=== PATIENT | male | born 1960 | race Caucasian/White ===

== ENCOUNTER 2016-11-06 11:58 | Inpatient (IN) | payer OTHER ==
--- NOTE | ~2016-11-06 | CO ---
Unit #: [id number] #: [id number] Patient: EDMUNDO GALEANO [id number] [facility]. [place], [place] [address] [id number] I MR#: [id number] NAME: EDMUNDO GALEANO ROOM: 553 Age: 56 Sex: M Admission Date: 11/06/2016 : 1960 Attending Physician: Brianna Oswald M.D. Primary Care Physician: Chiki Arvizu M.D. CONSULTATION REPORT REASON FOR CONSULTATION Arrhythmia, rule out torsades. HISTORY OF PRESENT ILLNESS This is a pleasant 56-year-old male with a past medical history of hypertension, hyperlipidemia, chronic pain syndrome, secondary to back issues, continued tobacco abuse, history of heavy drinking in the past and states he no longer drinks heavy, and questionable COPD. The patient presents to the emergency room with complaints of a 3- to -4 day history of increasing weakness, dizziness, and chills. He also reports some associated shortness of breath; however, but denies any fever, syncope, presyncope, or chest pain. The patient also denies any recent sick contacts. On arrival to the emergency room, the patient's lactic acid was noted to be 8.7. WBC count of 13.1. Chest x-ray showed normal heart size, and no pneumothorax or infiltrate. Rapid flu screen was negative. He was noted to be hypokalemic with a potassium of 2.4 and also noted to have a decreased magnesium level, presenting magnesium was 1.2. In the emergency room, the patient has received 80 mEq of potassium chloride, 2 L IV fluids, and started on IV antibiotics. He is currently also receiving potassium runs and magnesium per protocol. We were asked to see the patient secondary to suspected torsades de pointes, which occurred at approximately 3:36 a.m. on 11/07/2016. The patient according to the nurse just back from the restroom at this time. Dr. Navarro has reviewed the strip and believes this is artifact. Nursing staff reports the patient was asymptomatic during this episode. At present, the patient is resting in bed in the emergency room in T19. He reports no symptoms of chest pain, shortness of breath, or palpitations. He is comfortable. He is asking to eat. He has been admitted secondary to a diagnosis of sepsis syndrome, questionable etiology, possible pneumonia and again we were asked to see secondary to his arrhythmia. The patient's EKG shows sinus tachycardia with PACs, rate of 102 beats per minute. Nonspecific ST-T wave abnormalities noted. QTc interval of 602 msec. No acute ischemic changes noted. Initial point of care troponins have been negative. PAST MEDICAL HISTORY Unit #: [id number] #: [id number] Patient: EDMUNDO GALEANO 1. Hypertension, hyperlipidemia, chronic pain syndrome secondary to back issues. 2. Tobacco abuse. 3. Reported history of heavy alcohol in the past. States now he only drinks socially with last known drink approximately 1 day prior to admission. 4. Questionable COPD. 5. GERD. PAST SURGICAL HISTORY 1. ORIF of the right humerus secondary to fracture, status post fall. 2. Right VATS surgery with decortication for right-sided empyema. SOCIAL HISTORY The patient does report a history of tobacco abuse. Reports he was smoking approximately one pack a day for about 20 years. States he has recently cut back his amount of smoking. History of prior heavy drinking in the past about 6 years ago. He states he now drinks socially and his last drink was the evening prior to admission. He usually drinks beer. He denies any illicit drug use. He does report he is on disability. Currently, lives in a private residence with his friends. FAMILY HISTORY Positive for hypertension in his mother. ALLERGIES No known drug allergies. HOME MEDICATIONS Ventolin 1 puff inhalation q.4 hours p.r.n., Symbicort 80/4.5 two puffs inhalation b.i.d., oxycodone 10/325 one tab p.o. t.i.d. p.r.n., atorvastatin 10 mg p.o. daily, Inderal 20 mg p.o. b.i.d. REVIEW OF SYSTEMS Positive for weakness, dizziness, shortness of breath, cough nonproductive, and right arm tremors as well as tingling in the feet bilaterally. Otherwise, negative except for what was stated in the HPI. PHYSICAL EXAMINATION VITAL SIGNS: Temperature is 98.3, respiratory rate 18 to 22, pulse is 102 to 118, blood pressure 98/67 to 114/79. GENERAL: This is a male, who is in no acute distress. He is awake, alert, and oriented. He does have some tremors on the right side, which he states is due to nerve damage from his fracture in the past. HEENT: Head is atraumatic and normocephalic. Mucous membranes are moist. NECK: Supple. Trachea is midline. No lymphadenopathy. No thyromegaly. CARDIOVASCULAR: Regular rate and rhythm. S1 and S2. No murmur, no gallop, no rub. LUNGS: Clear to auscultation. No increased work of breathing is noted. No adventitious breath sounds. No rales, no rhonchi, no wheezes. ABDOMEN: Soft, nontender, nondistended. Bowel sounds are present. EXTREMITIES: Pulses are palpable. No clubbing, cyanosis, or edema. NEUROLOGIC: The patient is awake, alert, and oriented. He follows commands without difficulty. He moves all extremities equally. DIAGNOSTIC STUDIES LABORATORY RESULTS: Troponins have been less than 0.03 x2. Initial Unit #: [id number] #: [id number] Patient: FROYLANEDMUNDO potassium was 2.4, sodium 135, repeat potassium 2.6, chloride 96, CO2 of 26, BUN 6, creatinine 0.5. Blood glucose is 232, magnesium 1.2, repeat magnesium is 1.5. He currently has blood cultures which are pending. Urinalysis showed 1+ urobilinogen. 10 to 25 wbc's. Culture is pending. His drug tox screen was negative. IMAGING STUDIES: Chest x-ray; heart size is within normal limits. Previously identified right upper lobe infiltrate has resolved. Some blunting of the right costophrenic angle, which I suspect reflects some chronic scarring. No pneumothorax is seen and no acute infiltrates. CARDIOVASCULAR STUDIES: EKG; sinus tachycardia with PACs, 102 beats per minute, nonspecific ST-T wave abnormality. QTc interval of 602 msec. No acute ischemic changes noted. IMPRESSION 1. EKG abnormality, most likely secondary to electrolyte imbalance. 2. "Arrhythmia" appears to be motion artifact. 3. History of alcohol and nicotine abuse. 4. Sepsis syndrome. Initial lactic acid of 8.4, etiology unknown. 5. Pneumonia, community acquired. 6. Chronic obstructive pulmonary disease with continued tobacco abuse. 7. Hypokalemia. 8. Hypomagnesemia. 9. Hypertension. 10. Hyperlipidemia. 11. Gastroesophageal reflux disease. 12. Chronic back pain. PLAN 1. The patient has been seen and evaluated by Dr. Navarro. He believes the arrhythmias that we were consulted for is a motion artifact. He does have some EKG abnormalities; however, which are most likely secondary to electrolyte imbalance. His potassium and magnesium have been replaced; however, we will go ahead and give him another potassium chloride after breakfast and repeat at 4:00 a.m. and 11:00 p.m. today. 2. He will also be started on magnesium oxide 400 mg p.o. b.i.d., and we will add 2 g of magnesium sulfate and 20 of KCl to each bag of IV fluids, which will run at 75 mL an hour for two bags. 3. We will get a 2D echocardiogram with Doppler studies to assess for any LV dysfunction in light of his history of alcohol abuse. This will be done today. The patient will be allowed to eat now and he will be scheduled for exercise Cardiolite study in the a.m. to rule out any underlying coronary artery disease as the patient does have risk factors for ischemic heart disease, which include hypertension, hyperlipidemia, and continued tobacco abuse. 4. The patient will also be started on nicotine patch daily. Further recommendations to follow pending the outcome of exercise Cardiolite. Dictated by... Karla Rodriges A.P.R.N. for Geovanni Gomes/luanne TD: 11/07/2016 17:25 JOB #: [id number] Unit #: [id number] #: [id number] Patient: GALEANOTAMRAEDMUNDO CONSULTATION REPORT X Karla Rodriges APRN X CONSULTATION REPORT
--- NOTE | ~2016-11-06 | TH ---
Unit #: [id number] #: [id number] Patient: EDMUNDO GALEANO [id number] [address] [address] [id number] I MR#: [id number] NAME: EDMUNDO GALEANO : 1960 SEX: M STUDY DATE/TIME: 11/09/2016 UNIT: C5B ROOM: 553 STUDY DESCRIPTION: Attending Physician: Mya Allen M.D. Primary Care Physician: Chiki Arvizu M.D. CARDIOLOGY REPORT EXAM Lexiscan Cardiolite stress test, nuclear portion. PROCEDURE Using technetium 99m labeled Cardiolite, rest and stress SPECT images were obtained. Multiple SPECT images were obtained in various views including horizontal and vertical long axis and short axis views of the left ventricle. Images were obtained by gated SPECT method. The patient was administered 11.28 mCi of Cardiolite at rest. The patient was administered 30.6 mCi of Cardiolite after Lexiscan infusion was completed. On the stress images, there is normal perfusion noted. The rest images showed normal perfusion. Comparing rest and stress images, there is no stress-induced ischemia noted. The left ventricular ejection fraction is calculated to be 64%. There is no focal wall motion abnormality seen. CONCLUSION 1. No stress-induced ischemia noted. 2. The left ventricular ejection fraction is calculated to be 64%. 3. There is no focal wall motion abnormality seen. 4. Normal Lexiscan Cardiolite stress test. Dictated by... Geovanni Dutton TD: 11/09/2016 16:49 JOB #: [id number] CARDIOLOGY REPORT X Gretta Amato MD <ELECTRONICALLY SIGNED> 03/26/17 1429 CARDIOLOGY REPORT
--- NOTE | ~2016-11-06 | HP ---
Unit #: [id number] #: [id number] Patient: EDMUNDO GALEANO [id number] [facility]. [place], [place] [address] [id number] I MR#: [id number] NAME: EDMUNDO GALEANO ROOM: 18480 Age: 56 Sex: M Admission Date: 11/06/2016 : 1960 Attending Physician: Brianna Oswald M.D. Primary Care Physician: Chiki Arvizu M.D. HISTORY AND PHYSICAL CHIEF COMPLAINT Dizzy. HISTORY OF PRESENT ILLNESS The patient is a 56-year-old male with a past medical history of hypertension, hyperlipidemia, GERD, chronic pain, who presented to the emergency department for evaluation of the above. The patient states that he has not been feeling well for three to four days. He reports increasing generalized weakness, nonproductive cough and shortness of breath. He states that he has had chills but no documented fever. He denies any vomiting or diarrhea. No chest pain. He states that he has been feeling "shaky." He denies any new urinary symptoms. In the emergency department, initial temperature and pulse were 98 and 116 respectively, blood pressure 109/74, oxygen saturation 100% on room air. Chest x-ray shows nothing acute. Lactic acid was 8.7, white blood cell count 13.1. He was given 2 L of normal saline as well as Rocephin and azithromycin. Additionally he received 80 mEq of potassium and 1 mg of Ativan in the emergency department. He is being admitted to [facility] for evaluation and further treatment. PAST MEDICAL HISTORY 1. Admission to [facility], 11/17/2014 for right humerus fracture. He underwent ORIF during that admission 2. Hypertension. 3. Hyperlipidemia 4. GERD. 5. COPD. PAST SURGICAL HISTORY 1. Right VATs with decortication for right-sided empyema. 2. ORIF of right humeral fracture. SOCIAL HISTORY The patient smokes a pack of cigarettes daily. He states that he drinks "socially." His last drink was on the evening prior to admission and consisted of four beers. He denies daily drinking. He is on disability. FAMILY HISTORY Notable for COPD and diabetes. ALLERGIES None. Unit #: [id number] #: [id number] Patient: EDMUNDO GALEANO HOME MEDICATIONS 1. Ventolin one to two puffs q.4 to 6 hours. 2. Symbicort two puffs b.i.d. 3. Oxycodone 10 mg t.i.d. 4. Atorvastatin 10 mg daily. 5. Propranolol 20 mg b.i.d. REVIEW OF SYSTEMS A complete review of systems is negative except as indicated in the HPI. PHYSICAL EXAMINATION VITAL SIGNS: Temperature 98, pulse 116, respirations 16, blood pressure 109/74, oxygen saturation is 100% on room air. GENERAL: The patient is a male who is awake and alert, somewhat tremulous. HEENT: The head is atraumatic. Mucous membranes are moist. NECK: Supple. Trachea is midline. CARDIOVASCULAR: Regular rate and rhythm. LUNGS: Demonstrate inspiratory and expiratory wheezes. Breathing is not labored with conversation. ABDOMEN: Soft, nontender with bowel sounds present in all four quadrants. EXTREMITIES: Nontender with no pedal edema. He does have a well healed scar involving the right upper extremities. PSYCH: The patient is cooperative. Mood and affect are normal. SKIN: Skin of examined areas is warm and dry. NEUROLOGIC: The patient is somewhat tremulous. He follows commands. DIAGNOSTIC STUDIES CARDIOLOGY STUDIES: EKG showed sinus tachycardia with premature supraventricular complexes, rate of 102 BPM. The patient does have T wave inversion in V3. There is no old EKG for comparison. IMAGING STUDIES: Chest x-ray shows no acute abnormality. LABORATORY STUDIES: Complete blood count notable for white blood cell count of 13.1, hemoglobin and hematocrit of 11.5 and 34.5 respectively. MCV is 100.6. Lactic acid 8.7. Comprehensive metabolic panel is notable for a sodium of 132, potassium 2.4, chloride is 86, glucose 166, AST 62, alk phos 138, albumin 2.5, alcohol level 6. ASSESSMENT The patient is a 56-year-old male with: 1. Severe sepsis with a lactic acid of 8.7. He received 2 L of normal saline in the emergency department, followed by normal saline at 150 mL an hour. 2. Pneumonia, community acquired. The patient received Rocephin and azithromycin in the emergency department. 3. COPD with continued tobacco abuse. 4. Hypokalemia. The patient received a total of 80 mEq of potassium in the emergency department. 5. Hypertension. 6. Hyperlipidemia. 7. GERD. 8. Chronic back pain maintained on narcotics. PLAN 1. Admit to immediate level. Unit #: [id number] #: [id number] Patient: EDMUNDO GALEANO 2. Healthy heart diet. 3. Normal saline at 150 mL an hour. 4. Sepsis protocol with repeat lactic acid. 5. Blood cultures x2. 6. Sputum culture and sensitivity. 7. Supplemental oxygen. 8. Procalcitonin level. 9. DuoNeb q.4 hours while awake and q.2 hours p.r.n. 10. Solu-Medrol 80 mg IV q.12 hours with first dose now. 11. Mucinex 600 mg p.o. b.i.d. 12. Rocephin and azithromycin for community acquired pneumonia pending further workup. Consult Alexandre regarding pneumonia. He has seen the patient in the past. 13. Check magnesium level. 14. Potassium magnesium protocol. 15. Serial cardiac enzymes. 16. Check rapid flu screen. 17. Check urinalysis and urine tox screen. 18. Multivitamin, thiamine, and folic acid. 19. CIWA scoring. 20. SCDs for DVT prophylaxis. 21. Protonix for GI prophylaxis since the patient will be on Solu-Medrol. 22. Repeat labs in the morning, including magnesium. 23. 1. Dictated by Geovanni Roche/tyrone TD: 11/06/2016 15:26 JOB #: [id number] HISTORY AND PHYSICAL X Brianna Oswald MD X HISTORY AND PHYSICAL
--- NOTE | ~2016-11-06 | EKG ---
PATIENT: EDMUNDO GALEANO UNIT #: [id number] Ventricular Rate: 102 BPM Atrial Rate: 102 BPM P-R Interval: 126 ms QRS Duration: 78 ms Q-T Interval: 462 ms QTC Calculation(Bezet): 602 ms P Winnett: 54 degrees Calculated R Winnett: 53 degrees Calculated T Winnett: 8 degrees Diagnosis Line: Sinus tachycardia with Premature supraventricular Diagnosis Line: complexes Diagnosis Line: Nonspecific ST and T wave abnormality Diagnosis Line: Prolonged QT Diagnosis Line: Abnormal ECG Diagnosis Line: When compared with ECG of 15-DEC-2013 01:06, Diagnosis Line: Premature supraventricular complexes are now Diagnosis Line: Present Diagnosis Line: Nonspecific T wave abnormality now evident in Diagnosis Line: Inferior leads Diagnosis Line: QT has lengthened Diagnosis Line: Confirmed by YARIEL DARLING MD ([id number]) on Diagnosis Line: 11/09/2016 4:00:40 PM INTERPRETING MD: LISSET ARZOLA
--- NOTE | ~2016-11-06 | CO ---
Unit #: [id number] #: [id number] Patient: EDMUNDO GALEANO [id number] [address] [place], [place] [address] [id number] I MR#: [id number] NAME: EDMUNDO GALEANO ROOM: 93328 Age: 56 Sex: M Admission Date: 11/06/2016 : 1960 Attending Physician: Brianna Oswald M.D. Primary Care Physician: Chiki Arvizu M.D. Consultation Date: 11/06/2016 CONSULTATION REPORT REASON FOR CONSULT Pneumonia. CHIEF COMPLAINT Shakiness. HISTORY OF PRESENT ILLNESS This is a 56-year-old very pleasant male with past medical history significant for hypertension, hyperlipidemia who presented to the emergency room because he was shaking for the last 4 days but much worse today. His symptoms are associated with progressive shortness of breath and productive cough. He denied any fever, chills or night sweats. No chest pain. No nausea, vomiting or diarrhea. In the emergency room the patient's lactic acid was found to be elevated with (1) low blood pressure. Currently the patient is feeling better, but he continues to cough. REVIEW OF SYSTEMS Twelve-point review of systems was obtained and was negative except for what was mentioned in the HPI. PAST MEDICAL HISTORY 1. Right humerus fracture. 2. Hypertension. 3. Hyperlipidemia. 4. GERD. 5. COPD. PAST SURGICAL HISTORY 1. Right VATS with decortication for right-sided empyema. 2. ORIF of right humeral fracture. SOCIAL HISTORY The patient smokes 1 pack per day, and he stated that he drinks socially. His last drink was this evening. The patient is on disability. FAMILY HISTORY COPD and diabetes. ALLERGIES No known drug allergies. HOME MEDICATIONS Unit #: [id number] #: [id number] Patient: EDMUNDO GALEANO 1. Ventolin. 2. Symbicort. 3. Oxycodone. 4. Atorvastatin. 5. Propranolol. PHYSICAL EXAMINATION GENERAL: The patient is in no acute distress. VITAL SIGNS: Blood pressure 111/61, O2 saturation 98% on 2 liters nasal cannula. HEENT: Atraumatic, normocephalic. PERRLA, EOMI. NECK: Supple. No JVD. No lymphadenopathy. CHEST: Bilateral inspiratory crackles with scattered wheezing. HEART: S1, S2. No murmur, gallops or rubs. ABDOMEN: Soft, nontender. Bowel sounds positive. No hepatosplenomegaly. EXTREMITIES: No edema or cyanosis. SKIN: No rashes. DIAGNOSTIC STUDIES LABORATORY: Creatinine is 0.9, sodium 132, potassium 2.4, bicarb 26, magnesium 1.2. White blood count 13.1. IMAGING: Chest x-ray - No acute infiltrate, but pneumonia cannot be ruled out. ASSESSMENT 1. Septic shock. 2. Pneumonia. 3. COPD. 4. Hypokalemia. 5. Hypertension. 6. Hyperlipidemia. 7. GERD. PLAN 1. The patient is hemodynamically stable on nasal cannula. Will continue the patient on aggressive IV hydration and will follow lactic acid and urine output very closely. 2. Rocephin and azithromycin to cover for pneumonia. 3. Legionella and Streptococcus urine antigen tests. 4. Bronchodilator and mucolytics. 5. DVT prophylaxis. 6. Physical therapy eval. Dictated by... Ana Laura Gaona M.D. EA/ramakrishna TD: 11/07/2016 10:03 JOB #: [id number] Unit #: [id number] #: [id number] Patient: EDMUNDO GALEANO CONSULTATION REPORT X ANA LAURA HOPPER MD CONSULTATION REPORT
--- NOTE | ~2016-11-06 | CR63 ---
[facility] A Service of [facility] / [facility] RADIOLOGY TEXT RESULTS PATIENT: EDMUNDO GALEANO LOCATION: [facility] : 58 UNIT #: [id number] AGE: [address]: Mya Allen MD SEX: M ORDER DR: [id number] [facility] [address]. [place], [place] [address] [id number] I MR#: [id number] Acc #: [id number] NAME: EDMUNDO GALEANO : 1960 SEX: M STUDY DATE/TIME: 11/07/2016 10:57 UNIT: [facility] ROOM: [facility] STUDY DESCRIPTION: CR Chest 2 View Attending Physician: Brianna Oswald M.D. Ordering Physician: Arben Abarca M.D. Primary Care Physician: Chiki Arvizu M.D. MEDICAL IMAGING REPORT This report is preliminary unless electronic signature is present EXAM Chest x-ray 2 views, 11/07/2016 HISTORY Short of air, cough and history of pneumonia. Symptoms for a month. Hypertension. COMMENT 2 views of the chest are reviewed. 3 films obtained. Comparison study is from 11/06/2016. FINDINGS The cardiac silhouette size is normal. There is diffuse idiopathic skeletal hyperostosis in the thoracic spine with some ankylosis as well as thoracic degenerative changes. No pleural effusion is suspected. There is some linear airspace disease suspected right base and probably a small amount of atelectasis but there is no acute-appearing parenchymal infiltrate otherwise and no acute congestive failure. No pneumothorax. IMPRESSION 1. Suspect some linear atelectasis at the right base, otherwise no active disease. 2. Findings of diffuse idiopathic skeletal hyperostosis in the thoracic spine. Dictated by... Ciara Loyola M.D. THIS IS AN ELECTRONICALLY VERIFIED REPORT Ciara Loyola M.D. at 11/08/2016 11:38 AM SAC/ljd [facility] A Service of [facility] / [facility] RADIOLOGY TEXT RESULTS PATIENT: EDMUNDO GALEANO LOCATION: [facility] : 58 UNIT #: [id number] AGE: [address]: Mya Allen MD SEX: M ORDER DR: TD: 11/07/2016 23:17 JOB #: [id number] MEDICAL IMAGING REPORT COPY
--- NOTE | ~2016-11-06 | CR72 ---
[facility] A Service of [facility] / [facility] RADIOLOGY TEXT RESULTS PATIENT: EDMUNDO GALEANO LOCATION: [facility] [id number] : 58 UNIT #: [id number] AGE: [address]: Brianna Oswald MD SEX: M ORDER DR: [id number] [facility] [address] [facility]. [place], [place] [address] [id number] I MR#: [id number] Acc #: [id number] NAME: EDMUNDO GALEANO : 1960 SEX: M STUDY DATE/TIME: 11/06/2016 11:59 UNIT: [facility] ROOM: 89568 STUDY DESCRIPTION: CR Chest Single View Portable Attending Physician: Brianna Oswald M.D. Ordering Physician: Hudson Cabrera M.D. Primary Care Physician: Chiki Arvizu M.D. MEDICAL IMAGING REPORT This report is preliminary unless electronic signature is present EXAM Portable chest radiograph INDICATION Weakness and chest pain, shortness of breath for 1 week. FINDINGS Heart size is within normal limits for portable technique. Previously identified right upper lobe infiltrate has resolved. There is some blunting of the right costophrenic angle which I suspect likely reflects some chronic scarring. No pneumothorax is seen and I do not see any acute infiltrates on today's study. Since prior examination the patient has undergone plate and screw fixation of a right humeral fracture. Dictated by... Anaya Covarrubias M.D. THIS IS AN ELECTRONICALLY VERIFIED REPORT Anaya Covarrubias M.D. at 11/07/2016 1:30 PM AFF/rnr TD: 11/07/2016 02:57 JOB #: [id number] MEDICAL IMAGING REPORT COPY
--- NOTE | ~2016-11-06 | CT71 ---
[facility] A Service of [facility] RADIOLOGY TEXT RESULTS PATIENT: EDMUNDO GALEANO LOCATION: [facility] 39455-03 : 58 UNIT #: [id number] AGE: [address]: Brianna Oswald MD SEX: M ORDER DR: [id number] [facility] [address]. [place], [place] [address] [id number] I MR#: [id number] Acc #: [id number] NAME: EDMUNDO GALEANO : 1960 SEX: M STUDY DATE/TIME: 11/06/2016 15:40 UNIT: [facility] ROOM: [id number] STUDY DESCRIPTION: CT Head Wo Contrast Attending Physician: Brianna Oswald M.D. Ordering Physician: Hudson Cabrera M.D. Primary Care Physician: Chiki Arvizu M.D. MEDICAL IMAGING REPORT This report is preliminary unless electronic signature is present EXAM CT brain without contrast HISTORY Dizzy and weakness for [address] exam was performed with one or more of the following radiation dose reduction techniques: automatic exposure control, adjustment of mA and/or kV according to patient size, and iterative reconstruction. FINDINGS CT brain without contrast demonstrates mild generalized cerebral and cerebellar cortical atrophy and mild to moderate generalized ventricular dilatation, similar to CT 11/17/2014. No intracranial hemorrhage, mass or edema. No midline shift or ventricular dilatation or extraaxial fluid collection. Opacification of several right mastoid air cells. IMPRESSION No acute findings. Dictated by... Ok Baeza M.D. THIS IS AN ELECTRONICALLY VERIFIED REPORT Ok Baeza M.D. at 11/07/2016 1:54 PM Janis TD: 11/07/2016 09:02 JOB #: [id number] MEDICAL IMAGING REPORT COPY
--- NOTE | ~2016-11-06 | ST ---
Unit #: [id number] #: [id number] Patient: EDMUNOD GALEANO [id number] [facility]. [address] [address] [id number] I MR#: [id number] NAME: EDMUNDO GALEANO : 1960 SEX: M STUDY DATE/TIME: 11/09/2016 UNIT: C5B ROOM: 553 STUDY DESCRIPTION: Stress Test Attending Physician: Mya Allen M.D. Primary Care Physician: Chiki Arvizu M.D. CARDIOLOGY REPORT EXAM EKG Portion of a Lexiscan Cardiolite Stress Test REASON FOR EXAM Abnormal EKG. DESCRIPTION Baseline EKG is normal sinus rhythm, rate of 80 beats per minute. A total of 0.4 mg of Lexiscan was injected per protocol followed by Cardiolite. The patient's symptoms include none. There were no obvious ST changes. No arrhythmias noted during the exam. This had to stop due to protocol completion. This was a negative portion of the EKG section of the Cardiolite. There were no ST segment change. The patient had no symptoms and no arrhythmias noted. Please correlate with Cardiolite imaging. Dictated by... Lilia Lowery APRN for Geovanni Dutton TD: 11/09/2016 11:30 JOB #: [id number] CARDIOLOGY REPORT X CARDIOLOGY REPORT
--- NOTE | ~2016-11-06 | DS ---
Unit #: [id number] #: [id number] Patient: EDMUNDO GALEANO [id number] [address] [address] [id number] I MR#: [id number] NAME: EDMUNDO GALEANO ROOM: [facility] Age: 56 Sex: M Admission Date: 11/06/2016 : 1960 Discharge Date: 11/09/2016 Attending Physician: Mya Allen M.D. Primary Care Physician: Chiki Arvizu M.D. DISCHARGE SUMMARY PRINCIPAL DIAGNOSES 1. Septic shock secondary to community-acquired pneumonia. 2. Acute exacerbation of chronic obstructive pulmonary disease. 3. Steroid-induced hyperglycemia. 4. Hypertension. 5. Gastroesophageal reflux disease. 6. Dyslipidemia. 7. Chronic lumbago maintained on narcotics. 8. Hypokalemia. 9. Hypomagnesemia. 10. Hypophosphatemia. 11. Folate deficiency with associated macrocytic anemia. 12. Mild pulmonary hypertension. 13. Alcohol use without evidence of withdrawal. 14. Tobaccoism. CONSULTANTS 1. Dr. Navarro, cardiology 2. Dr. Gaona, pulmonology PROCEDURES 1. Two-dimensional echocardiogram on 11/07/2016 with an ejection fraction of 60%, [id number] dilatation of left atrium, right ventricular systolic pressure is 44 mmHg consistent with mild pulmonary hypertension. Trace mitral regurgitation, mild tricuspid regurgitation. 2. Cardiolite stress test on 11/09/2016 which was normal. 3. Chest x-ray on 11/06/[address] of the head without contrast on 11/06/2016 with no acute findings. 5. Chest x-ray on 11/07/2016 with skeletal hyperostosis noted. Right basilar infiltrate is noted. HOSPITAL COURSE Mr. Galeano is a 56-year-old male who presents to the emergency department with complaints of dizziness and feeling shaky. Please refer to History and Physical for further details. In the emergency department, the patient did not have any evidence of hypoxia, however, lactic acid was elevated at 8.7; white blood cell count was elevated at 13.1. Chest x-ray initially was unremarkable as was CT scan of the head. The patient, however, had wheezes upon examination. He was felt clinically to have pneumonia and he was subsequently admitted. The patient was placed on IV antibiotics and the following morning chest x-ray did, indeed, reveal pneumonia and he was continued on antibiotic Unit #: [id number] #: [id number] Patient: EDMUNDO GALEANO. Causative organism was not identified. Patient was followed by Dr. Gaona. He has been transitioned to oral antibiotics which he will complete as an outpatient. Leukocytosis has resolved and patient has remained afebrile and has had no evidence of hypoxia. The patient did have an associated COPD exacerbation and was placed on IV steroids which have now been tapered to oral steroids. He will complete a course as outpatient and continue his Symbicort. He has been briefly counseled regarding tobacco cessation. The patient did have significant hypokalemia and hypomagnesemia and he will go home on oral supplementation for his magnesium. In regard to patient's sepsis, this has resolved. He did receive appropriate IV fluids and again IV antibiotics. The patient had questionable arrhythmia while on telemetry and Dr. Navarro was consulted. I will note this arrhythmia was reproducible by pushing on patient's monitor tech. However, given his tobacco history he did undergo a stress test which was unremarkable. A two-dimensional echocardiogram also had findings as noted. The patient is this morning doing quite well, taking pills for all of his supplementation and/or treatment and will be discharged home. DISCHARGE CONDITION Stable. DISCHARGE STATUS Discharge to home. DISCHARGE MEDICATIONS 1. Ventolin inhaler one to two puffs q.4 h. p.r.n. for shortness of breath. 2. Symbicort 80/4.5 mcg two puffs b.i.d. 3. Prednisone 10 mg tablets 4 tablets for 3 days; 3 tablets for 3 days; 2 tablets for 3 days; 1 tablet for 3 days; then, discontinue. 4. Magnesium oxide 400 mg p.o. b.i.d. for one month. 5. Inderal 20 mg b.i.d. 6. Atorvastatin 10 mg h.s. 7. Oxycodone 10/325 one tablet p.o. t.i.d. 8. Levaquin 750 mg p.o. daily for another 3 days. 9. Folic acid 1 mg p.o. daily. DISCHARGE INSTRUCTIONS 1. The patient was instructed to follow a heart-healthy diet. 2. Increase activity as tolerated. 3. Refrain from any further tobacco use. FOLLOWUP The patient will follow up with his primary care physician, Dr. Arvizu, in two weeks. Unit #: [id number] #: [id number] Patient: EDMUNDO GALEANO Dictated by... Geovanni Kelley/madelyn TD: 11/10/2016 22:11 JOB #: [id number] DISCHARGE SUMMARY X Mya Allen MD X DISCHARGE SUMMARY
[~2016-11-06 11:58] MED LIST: ALBUTEROL17 GM INH; ALBUTEROL20 ml INH; ATORVASTATIN CA10 MG PO; DOCUSATE SODIU100 MG PO; FERRO-TIME325 MG PO; IBUPROFEN800 MG PO; INDERAL20 MG PO; LEVAQUIN750 MG PO; LIPITOR PO; LISINOPRIL-HCTZ1 T14 PO; LORTAB 5/500 TA1 TA1 PO; NEXIUM20 MG PO; NICOTINE1 EAC2 TD; OMEPRAZOLE20 M2 PO; PERCOCET 51 UDTAB 5/ PO; PROPRANOLOL HCL20 MG PO; SYMBICORT INH
[2016-11-06 12:04] LABS: BASOPHIL# 0.1 X10e3 (0-0.3); BASOPHIL% 0.7 % (0-2.5); EOSINOPHIL% 0.2 % (0.0-7.0); HEMATOCRIT 34.5 % (38.0-50.0); HEMOGLOBIN 11.5 gm/dL (13.0-16.0); LYMPHOCYTE# 1.4 X10e3 (1.0-3.5); LYMPHOCYTE% 10.4 % (17.0-45.0); MEAN CELL VOLUME 100.6 FL (83-96); MEAN CORPUSCULAR HEMOGLOBIN 33.5 PG (28-34); MEAN CORPUSCULAR HGB CONC 33.3 g/dL (30-36); MEAN PLATELET VOLUME 8.9 FL (6.5-11.5); MONOCYTE# 0.6 X10e3 (0-1.0); MONOCYTE% 4.4 % (3.0-12.0); NEUTROPHIL% 84.3 % (40-75); PLATELET COUNT 292 X10e3 (140-420); RED BLOOD COUNT 3.43 X10e (3.90-5.60); WHITE BLOOD COUNT 13.1 X10e3 (4.0-10.5)
[2016-11-06 12:09] LABS: DIFF IND NO
[2016-11-06 12:41] LABS: ALBUMIN SERUM 2.5 g/dL (3.5-5.0); ALCOHOL BLOOD 6 mg/dL (0); ALKALINE PHOSPHATASE 138 U/L (32-92); ALT (SGPT) 20 U/L (10-40); AST (SGOT) 62 U/L (10-42); BILIRUBIN, DIRECT 0.4 mg/dL (0.0-0.2); BILIRUBIN,INDIRECT 0.9 mg/dL (0.0-0.9); BILIRUBIN,TOTAL 1.3 mg/dL (0.2-2.0); CALCIUM SERUM 8.6 mg/dL (8.4-10.2); CARBON DIOXIDE 26 mmol/L (22-31); CHLORIDE 86 mmol/L (100-111); CREATININE SERUM 0.9 mg/dL (0.6-1.4); GLOM FILT RATE Estimated ABOVE60 mL/min (>60); GLUCOSE FASTING 166 mg/dL (70-110); PROTEIN TOTAL SERUM 6.5 g/dL (6.0-8.3); SODIUM 132 mmol/L (135-145)
[2016-11-06 12:43] LABS: BLOOD UREA NITROGEN <5 mg/dL (9-23); BUN/CREATININE RATIO 5.55
[2016-11-06 12:45] LABS: POTASSIUM 2.4 mmol/L (3.5-5.1)
[2016-11-06] MEDS ORDERED: ALBUTEROL17 GM INH (16:02)
[2016-11-06] MEDS ORDERED: SYMBICORT80 INH (16:02)
[2016-11-06] MEDS ORDERED: ATORVASTATIN CA10 MG PO (16:03)
[2016-11-06] MEDS ORDERED: INDERAL20 MG PO (16:03)
[2016-11-06] MEDS ORDERED: OXYCODON HCL-1 UDTA1 PO (16:03)
[2016-11-06 18:37] LABS: URINE SOURCE CLEAN CATCH
[2016-11-06 18:43] LABS: URINE APPEARANCE CLEAR; URINE BILIRUBIN NEG (NEG); URINE BLOOD TRACE (NEG); URINE COLOR YELLOW; URINE GLUCOSE NEG (NEG); URINE KETONE NEG (NEG); URINE LEUKOCYTE ESTERASE NEG (NEG); URINE NITRATE NEG (NEG); URINE PH 7.5 (5-8); URINE PROTEIN NEG (NEG); URINE SPECIFIC GRAVITY 1.008 (1.003-1.035)
[2016-11-06 18:46] LABS: CULTURE INDICATED? YES; URINE BACTERIA AUWI NEG (NEGATIVE); URINE SQUAMOUS EPITHELIAL CELL MOD /[HPF]
[2016-11-06 18:53] LABS: AMPHETAMINE NEG (NEG); BARBITURATES NEG (NEG); BENZODIAZEPINES NEG (NEG); COCAINE NEG (NEG); MARIJUANA NEG (NEG); OPIATES NEG (NEG); TRICYCLIC ANTIDEPRESSANTS NEG (NEG); U METHADONE NEG (NEG)
[2016-11-06 19:30] LABS: CK TOTAL 25 IU/L (36-174)
[2016-11-06 19:47] LABS: INFLUENZA A NEG (NEG); INFLUENZA B NEG (NEG)
[2016-11-07 00:27] LABS: MAGNESIUM 1.6 mg/dL (1.6-3.0)
[2016-11-07 00:28] LABS: POTASSIUM 2.6 mmol/L (3.5-5.1)
[2016-11-07 01:34] LABS: CK TOTAL 20 IU/L (36-174)
[2016-11-07 04:06] LABS: BASOPHIL% 0.3 % (0-2.5); HEMATOCRIT 30.9 % (38.0-50.0); HEMOGLOBIN 10.3 gm/dL (13.0-16.0); LYMPHOCYTE# 0.7 X10e3 (1.0-3.5); LYMPHOCYTE% 10.4 % (17.0-45.0); MEAN CELL VOLUME 103.1 FL (83-96); MEAN CORPUSCULAR HEMOGLOBIN 34.2 PG (28-34); MEAN CORPUSCULAR HGB CONC 33.1 g/dL (30-36); MONOCYTE# 0.2 X10e3 (0-1.0); MONOCYTE% 2.5 % (3.0-12.0); NEUTROPHIL# 6.2 X10e3 (1.5-7.1); NEUTROPHIL% 86.8 % (40-75); PLATELET COUNT 244 X10e3 (140-420); RED CELL DISTRIBUTION WIDTH 14.7 % (11.0-15.5); WHITE BLOOD COUNT 7.1 X10e3 (4.0-10.5)
[2016-11-07 04:09] LABS: DIFF IND NO
[2016-11-07 04:30] LABS: ALBUMIN SERUM 2.3 g/dL (3.5-5.0); ALKALINE PHOSPHATASE 123 U/L (32-92); ALT (SGPT) 20 U/L (10-40); AST (SGOT) 59 U/L (10-42); BILIRUBIN,TOTAL 0.8 mg/dL (0.2-2.0); BLOOD UREA NITROGEN 6 mg/dL (9-23); CALCIUM SERUM 7.8 mg/dL (8.4-10.2); CARBON DIOXIDE 26 mmol/L (22-31); CHLORIDE 96 mmol/L (100-111); CREATININE SERUM 0.5 mg/dL (0.6-1.4); GLOM FILT RATE Estimated ABOVE60 mL/min (>60); GLUCOSE FASTING 232 mg/dL (70-110); MAGNESIUM 1.5 mg/dL (1.6-3.0); PHOSPHOROUS 1.8 mg/dL (2.5-4.6); PROTEIN TOTAL SERUM 6.1 g/dL (6.0-8.3); SODIUM 135 mmol/L (135-145)
[2016-11-07 04:35] LABS: POTASSIUM 2.6 mmol/L (3.5-5.1)
[2016-11-08 05:44] LABS: BASOPHIL% 0.1 % (0-2.5); HEMATOCRIT 28.4 % (38.0-50.0); HEMOGLOBIN 9.4 gm/dL (13.0-16.0); LYMPHOCYTE# 0.9 X10e3 (1.0-3.5); LYMPHOCYTE% 8.6 % (17.0-45.0); MEAN CELL VOLUME 103.1 FL (83-96); MEAN CORPUSCULAR HEMOGLOBIN 34.1 PG (28-34); MEAN CORPUSCULAR HGB CONC 33.1 g/dL (30-36); MEAN PLATELET VOLUME 9.4 FL (6.5-11.5); MONOCYTE# 0.4 X10e3 (0-1.0); MONOCYTE% 3.4 % (3.0-12.0); NEUTROPHIL# 9.4 X10e3 (1.5-7.1); NEUTROPHIL% 87.9 % (40-75); PLATELET COUNT 265 X10e3 (140-420); RED BLOOD COUNT 2.75 X10e (3.90-5.60); RED CELL DISTRIBUTION WIDTH 15.6 % (11.0-15.5)
[2016-11-08 05:58] LABS: DIFF IND NO; WHITE BLOOD COUNT 10.7 X10e3 (4.0-10.5)
[2016-11-08 06:08] LABS: ALBUMIN SERUM 2.3 g/dL (3.5-5.0); ALKALINE PHOSPHATASE 122 U/L (32-92); ALT (SGPT) 35 U/L (10-40); AST (SGOT) 100 U/L (10-42); BILIRUBIN,TOTAL 0.6 mg/dL (0.2-2.0); BLOOD UREA NITROGEN 8 mg/dL (9-23); CALCIUM SERUM 8.3 mg/dL (8.4-10.2); CARBON DIOXIDE 25 mmol/L (22-31); CHLORIDE 102 mmol/L (100-111); CHOLESTEROL 213 mg/dL (0-200); CREATININE SERUM 0.5 mg/dL (0.6-1.4); GLOM FILT RATE Estimated ABOVE60 mL/min (>60); GLUCOSE FASTING 147 mg/dL (70-110); HDL CHOLESTEROL 27 mg/dL (29-75); LDL/HDL RATIO 6 RATIO (0-4); MAGNESIUM 1.5 mg/dL (1.6-3.0); PHOSPHOROUS 2.4 mg/dL (2.5-4.6); PROTEIN TOTAL SERUM 5.4 g/dL (6.0-8.3); SODIUM 133 mmol/L (135-145); TRIGLYCERIDES 186 mg/dL (10-160)
[2016-11-08 06:18] LABS: LDL CHOLESTEROL 149 mg/dL (-130); POTASSIUM 5.9 mmol/L (3.5-5.1)
[2016-11-08 07:13] LABS: FOLATE (FOLIC ACID) 4.8 ng/mL (>5.8)
[2016-11-09 05:34] LABS: HEMATOCRIT 27.8 % (38.0-50.0); HEMOGLOBIN 9.4 gm/dL (13.0-16.0); MEAN CELL VOLUME 101.2 FL (83-96); MEAN CORPUSCULAR HEMOGLOBIN 34.3 PG (28-34); MEAN CORPUSCULAR HGB CONC 33.9 g/dL (30-36); MEAN PLATELET VOLUME 9.3 FL (6.5-11.5); RED BLOOD COUNT 2.74 X10e (3.90-5.60); RED CELL DISTRIBUTION WIDTH 14.8 % (11.0-15.5); WHITE BLOOD COUNT 7.2 X10e3 (4.0-10.5)
[2016-11-09 06:13] LABS: BLOOD UREA NITROGEN 8 mg/dL (9-23); BUN/CREATININE RATIO 13.33; CALCIUM SERUM 8.6 mg/dL (8.4-10.2); CARBON DIOXIDE 27 mmol/L (22-31); CHLORIDE 100 mmol/L (100-111); CREATININE SERUM 0.6 mg/dL (0.6-1.4); GLOM FILT RATE Estimated ABOVE60 mL/min (>60); GLUCOSE FASTING 142 mg/dL (70-110); MAGNESIUM 1.5 mg/dL (1.6-3.0); PHOSPHOROUS 4.3 mg/dL (2.5-4.6); SODIUM 137 mmol/L (135-145)
[2016-11-09] MEDS ORDERED: PREDNISONE10 MG PO (20:04)
[2016-11-09] MEDS ORDERED: MAGNESIUM400 M1 PO (20:06)
[2016-11-09] MEDS ORDERED: MULTI VITAMIN1 EACH PO (20:09)
[2016-11-09] MEDS ORDERED: LEVAQUIN750 MG PO (20:10)
[2016-11-09] MEDS ORDERED: FOLIC ACID1 MG PO (20:11)
== END 2016-11-09 21:09 | disposition home or self-care (01) | DRG 871 ==
LOC: CED 11:58 → CEDOF 14:25 → C5B 11-07 16:03
PROVIDERS: Emergency Medicine; Family Medicine; Internal Medicine; Internal Medicine Cardiovascular Disease
DX: A41.9 Sepsis, unspecified organism (principal); J18.9 Pneumonia, unspecified organism; R65.21 Severe sepsis with septic shock; J44.0 Chronic obstructive pulmonary disease with (acute) lower respiratory infection; E83.42 Hypomagnesemia; I27.2 Other secondary pulmonary hypertension; J44.1 Chronic obstructive pulmonary disease with (acute) exacerbation; F17.210 Nicotine dependence, cigarettes, uncomplicated; R73.9 Hyperglycemia, unspecified; T38.0X5A Adverse effect of glucocorticoids and synthetic analogues, initial encounter; Y92.9 Unspecified place or not applicable; E87.6 Hypokalemia; E83.39 Other disorders of phosphorus metabolism; E63.8 Other specified nutritional deficiencies; D53.9 Nutritional anemia, unspecified; Z72.89 Other problems related to lifestyle; I10 Essential (primary) hypertension; K21.9 Gastro-esophageal reflux disease without esophagitis; E78.5 Hyperlipidemia, unspecified; G89.29 Other chronic pain; M54.9 Dorsalgia, unspecified; I49.9 Cardiac arrhythmia, unspecified
CPT/HCPCS: 70450; 71010; 71020; 78452; 80048; 80053; 80061; 80076; 80307; 81003; 82308; 82550; 82607; 82746; 82947; 83036; 83605; 83735; 84100; 84132; 84443; 84484; 85025; 85027; 87040; 87086; 87804; 93005; 93017; 93306; 94640; 94760; 97162; 97165; 99291; A9500; C9113; G0480; J0456; J0610; J0696; J1650; J1940; J2060; J2785; J2920; J2930; J3411; J3475; J3480; J7042